=== PATIENT | male | born 1995 | race Caucasian/White ===

== ENCOUNTER 2017-11-16 14:03 | Emergency (ER) | payer OTHER ==
[~2017-11-16] VITALS: Ht 180.3 cm; Wt 81.6 kg
[2017-11-16 14:08] VITALS: BP 135/68
== END 2017-11-16 14:35 ==
LOC: ER 14:10
DX: Z00.00 Encounter for general adult medical examination without abnormal findings (principal)
CPT/HCPCS: 99283; A4606; Z7610